=== PATIENT | female | born 1965 ===

== ENCOUNTER 2018-03-27 18:09 | Emergency (ER) | payer OTHER ==
[2018-03-27 18:20] VITALS: RESP 18; TEMP 98.1
[2018-03-27] MEDS ORDERED: Naproxen 550 mg Tab PO STA (20:11)
[2018-03-27] MEDS ORDERED: Naproxen 550 mg Tab PO ONE (20:31)
[2018-03-27 21:19] VITALS: BP 134/78; PULSE 90
--- NOTE | 2018-03-27 21:20 | C.PDOC ---
History Of Present Illness 52 year old female presents to the ER with a complaint of pain to the bilateral legs. Patient states the pain begins at the inner thighs and radiates down to the lower legs, worse on right leg. She reports the symptoms began a month ago in the hips and worsened with movement. Patient was started on nabumetone and given Rx for meds but does not take them because she does not like the side effects. Denies weakness, numbness, recent prolonged travel, or recent state of immobilization. Time Seen by Provider: 03/27/18 19:46 Chief Complaint (Nursing): Back Pain History Per: Patient History/Exam Limitations: no limitations Onset/Duration Of Symptoms: Hrs Current Symptoms Are (Timing): Still Present Quality Of Discomfort: Unable To Describe Previous Symptoms: None Associated Symptoms: None Recent travel outside of the [place]: No Past Medical History Reviewed: Historical Data, Nursing Documentation, Vital Signs Vital Signs: Last Vital Signs Temp 98.1 F 03/27/18 18:15 Pulse 99 H 03/27/18 18:15 Resp 18 03/27/18 18:15 BP 162/105 H 03/27/18 18:15 Pulse Ox 100 03/27/18 18:15 - Medical History PMH: HTN Surgical History: Cholecystectomy Family History: States: Unknown Family Hx - Social History Hx Alcohol Use: Yes Hx Substance Use: No - Immunization History Hx Tetanus Toxoid Vaccination: Yes Hx Influenza Vaccination: Yes Hx Pneumococcal Vaccination: Yes Review Of Systems Musculoskeletal: Positive for: Leg Pain Neurological: Negative for: Weakness, Numbness Physical Exam - Physical Exam Appears: Non-toxic Skin: Normal Color, Warm, Dry Head: Atraumatic, Normacephalic Eye(s): bilateral: Normal Inspection Extremity: Normal ROM (x4), Capillary Refill (<2 seconds), Other (No erythema mass, or leg swelling. Tenderness with movement of right hip and thigh, tenderness to right calf.) Pulses: Left Radial: Normal, Right Radial: Normal Neurological/Psych: Oriented x3, Normal Speech, Normal Motor, Normal Sensation ED Course And Treatment - Laboratory Results Lab Results: D-Dimer, Quantitative < 200 ng/mlDDU (0-243) 03/27/18 20:19 O2 Sat by Pulse Oximetry: 100 (room air) Pulse Ox Interpretation: Normal Progress Note: D dimer ordered, results were negative. Naproxen administered. Patient is resting comfortably in the ER in no acute distress, ambulatory with steady gait, vitals are stable, will discharge home with Rx and instructions to follow up with PMD. 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 - Scribe Statement The provider has reviewed the documentation as recorded by the Scribelias Roe All medical record entries made by the Omeribelias were at my direction and personally dictated by me. I have reviewed the chart and agree that the record accurately reflects my personal performance of the history, physical exam, medical decision making, and the department course for this patient. I have also personally directed, reviewed, and agree with the discharge instructions and disposition.
[2018-03-27 21:59] VITALS: O2SAT 100
== END 2018-03-27 21:40 | disposition home or self-care (01) ==
LOC: C.ER 18:09
DX: M25.50 Pain in unspecified joint (principal); I10 Essential (primary) hypertension